=== PATIENT | female | born 1965 | race Caucasian/White ===

== ENCOUNTER 2018-02-22 16:54 | Emergency (ER) | payer BC ==
[2018-02-22] MEDS ORDERED: IPRATROPIUM/ALBUTEROL 3 ML VIAL NEB ONE (17:14)
[2018-02-22] MEDS ORDERED: methylPREDNISolone SODIUM SUC 125 MG/2 ML VIAL IV ONE (17:14)
[2018-02-22] MEDS ORDERED: cefTRIAXone SODIUM 1 GM in SODIUM CHL 0.9% 50ML MIN-BAG+ 50 ML IVPB ONE (17:14)
[2018-02-22] MEDS ORDERED: ACETAMINOPHEN 500 MG TAB PO ONE (17:16)
[2018-02-22] MEDS ORDERED: cefTRIAXone SODIUM 1 GM VIAL ONE (17:19)
[2018-02-22] MEDS ORDERED: SODIUM CHL 0.9% 50ML MIN-BAG+ 50 ML IVPB ONE (17:20)
[2018-02-22 17:34] VITALS: O2SAT 93
--- NOTE | 2018-02-22 18:09 | RAD ---
EXAM DESCRIPTION: Chest,2 Views CLINICAL HISTORY: 52 years Female shortness of breath COMPARISON: 04/15/2014 FINDINGS: The cardiomediastinal silhouette appears unremarkable. No consolidating infiltrates or pleural effusions. No pneumothorax. IMPRESSION: No acute abnormality is identified. 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
--- NOTE | 2018-02-22 18:50 | ED.PDOC ---
History of Present Illness - General Chief Complaint: Respiratory Problem Stated Complaint: difficulty breathing,cough,fever Time Seen by Provider: 02/22/18 17:14 Source: patient Exam Limitations: no limitations - History of Present Illness Initial Comments: patient comes in today with 3 day history of cough, fever, nasal congestion, and shortness of breath. Patient was seen via tele-doc a couple of days ago and started on Tamiflu and given a prednisone pack. However, patient states she continues to be short of breath today and so was told she should come in and be evaluated for possible pneumonia. Patient has some sputum production that clear and minimal. She continues to have some fever despite taking the Tamiflu. She states she does have breathing treatments at home with albuterol but they've only been minimally effective. The patient does have some wheezing and a positive history of smoking a half a pack a day since age 16. Patient otherwise is fairly healthy and has no ETOH or drug use. Timing/Duration: 1 week, getting worse Severity: moderate Activities at Onset: rest Possible Cause: no prior episodes Improving Factors: nothing Worsening Factors: movement Associated Symptoms: cough, fever, wheezing Respiratory Risk Factors: no cause identified Allergies/Adverse Reactions: Allergies Erythromycin Allergy (Verified 12/19/14 18:19) Home Medications: Ambulatory Orders Ciprofloxacin [Cipro] 500 mg PO BID #20 ml 12/21/14 metroNIDAZOLE [Flagyl] 500 mg PO TID #30 tab 12/21/14 Ipratropium [place] Nebs [Atrovent NEBS] 0.5 mg INH QID #1 pack 02/22/18 Review of Systems - Review of Systems Constitutional: States: chills, fever, malaise EENTM: States: nose congestion, throat pain Respiratory: States: cough, short of breath, wheezing Cardiology: Denies: no symptoms reported, chest pain, edema Gastrointestinal/Abdominal: States: no symptoms reported. 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 Hx Substance Use: No Hx Physical Abuse: No Hx Emotional Abuse: No Family Medical History - Family History Mother Family History: Unknown Living Status: Hx Family;Other: suscide Grandparents Living Status: Hx Family Stroke: Yes Physical Exam - Physical Exam General Appearance: Alert, No apparent distress Eyes, Ears, Nose, Throat Exam: PERRL/EOMI, normal ENT inspection, TMs normal, pharyngeal erythema Neck: non-tender, full range of motion, supple, normal inspection Respiratory: decreased breath sounds, wheezing Cardiovascular/Chest: normal peripheral pulses, regular rate, rhythm, no edema, no murmur Gastrointestinal/Abdominal: normal bowel sounds, non tender, soft Progress - Progress Progress: patient is doing much better after breathing treatment with Atrovent and albuterol. We've given her IV Rocephin as well as Solu-Medrol and she states she does feel better and her lung milner have cleared. We've given her precautions as her oxygen levels are currently running between 90-93% but we'll let her go home with close follow-up with her PCP on Saturday. She should continue the Tamiflu and the breathing treatments and we will give her prescription for Atrovent. 02/22/18 18:52 - Results/Orders Results/Orders: Laboratory Results WBC 7.0 K/mm3 (4.8-10.8) 02/22/18 17:41 RBC 4.60 M/mm3 (4.20-5.40) 02/22/18 17:41 Hgb 13.9 gm/dL (12.0-16.0) 02/22/18 17:41 Hct 42.2 % (36.0-47.0) 02/22/18 17:41 MCV 91.8 fl (81.0-99.0) 02/22/18 17:41 MCH 30.2 pg (27.0-31.0) 02/22/18 17:41 MCHC 32.9 g/dL (33.0-37.0) L 02/22/18 17:41 RDW 14.2 % (11.5-14.5) 02/22/18 17:41 Plt Count 250 K/mm3 (130-400) 02/22/18 17:41 MPV 9.0 fl (7.40-10.4) 02/22/18 17:41 Absolute Neuts (auto) 5.20 K/uL (1.8-6.8) 02/22/18 17:41 Absolute Lymphs (auto) 0.90 K/uL (1.0-3.4) L 02/22/18 17:41 Absolute Monos (auto) 0.80 K/uL (0.2-0.8) 02/22/18 17:41 Absolute Eos (auto) 0.00 K/uL (0.0-0.4) 02/22/18 17:41 Absolute Basos (auto) 0.00 K/uL (0.0-0.1) 02/22/18 17:41 Neutrophils % 75.1 % (42.0-78.0) 02/22/18 17:41 Lymphocytes % 13.4 % (20.0-50.0) L 02/22/18 17:41 Monocytes % 10.9 % (2.0-9.0) H 02/22/18 17:41 Eosinophils % 0.0 % (1.0-5.0) L 02/22/18 17:41 Basophils % 0.6 % (0.0-2.0) 02/22/18 17:41 Sodium 137 mmol/L (135-145) 02/22/18 17:41 Potassium 3.9 mmol/L (3.6-5.0) 02/22/18 17:41 Chloride 104 mmol/L (101-111) 02/22/18 17:41 Carbon Dioxide 24 mmol/L (21-31) 02/22/18 17:41 Anion Gap 12.9 (12-18) 02/22/18 17:41 BUN 17 mg/dL (7-18) 02/22/18 17:41 Creatinine 0.80 mg/dL (0.6-1.3) 02/22/18 17:41 BUN/Creatinine Ratio 21.3 (10-20) H 02/22/18 17:41 Random Glucose 114 mg/dL (70-105) H 02/22/18 17:41 Serum Osmolality 276.2 mOsm/L (275-295) 02/22/18 17:41 Calcium 9.1 mg/dL (8.4-10.2) 02/22/18 17:41 Total Bilirubin 0.2 mg/dL (0.2-1.0) 02/22/18 17:41 AST 36 IU/L (10-42) 02/22/18 17:41 ALT 27 IU/L (10-60) 02/22/18 17:41 Alkaline Phosphatase 74 IU/L (42-121) 02/22/18 17:41 Serum Total Protein 7.1 gm/dL (6.4-8.2) 02/22/18 17:41 Albumin 3.8 g/dl (3.2-5.5) 02/22/18 17:41 Globulin 3.3 gm/dL (2.3-3.5) 02/22/18 17:41 Albumin/Globulin Ratio 1.2 (1.1-1.9) 02/22/18 17:41 Patient Name: VERNA EDOUARD Gender: Female Date of : 1965 cell Referring Physician: SHIRA SLAUGHTER Organization: [facility] Accession Number: [id number] Requested Date: February 22, 2018 17:14 Report Status: Final Requested Procedure: 1 Procedure Description: Chest,2 Views Modality: CR Findings Reporting MD: Nolvia Arthur Fellow MD: Not available Dictation Time: Health And Safety Tech: Not available Squilgeer Date: EXAM DESCRIPTION: Chest,2 Views CLINICAL HISTORY: 52 years Female shortness of breath COMPARISON: 04/15/2014 FINDINGS: The cardiomediastinal silhouette appears unremarkable. No consolidating infiltrates or pleural effusions. No pneumothorax. IMPRESSION: No acute abnormality is identified. 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 Copy, Patient Portal Self Enrollment Diet: regular diet Referrals: SKYLAR MARAVILLA [Primary Care Provider] - 1-2 Weeks Prescriptions: Ipratropium [place] Nebs [Atrovent NEBS] 0.5 mg INH QID #1 pack Home Medications: Ambulatory Orders Ciprofloxacin [Cipro] 500 mg PO BID #20 ml 12/21/14 metroNIDAZOLE [Flagyl] 500 mg PO TID #30 tab 12/21/14 Ipratropium [place] Nebs [Atrovent NEBS] 0.5 mg INH QID #1 pack 02/22/18 Additional Instructions: return to ER for increasing shortness of breath, purulent sputum, or severe worsening of symptoms. Follow up on Saturday with PCP if not continuing to improve. May continue to use albuterol as well as prescribed Atrovent.
[2018-02-22 19:10] VITALS: BP 93/65; TEMP 99
== END 2018-02-22 19:10 | disposition home or self-care (01) ==
LOC: ER 16:54
DX: J11.1 Influenza due to unidentified influenza virus with other respiratory manifestations (principal); J45.901 Unspecified asthma with (acute) exacerbation; Z88.1 Allergy status to other antibiotic agents
CPT/HCPCS: 36415; 71046; 80053; 85025; 87502; 94640; J0696; J2930; J7050; J7620

== ENCOUNTER 2019-09-06 18:31 | Emergency (ER) | payer BC ==
[2019-09-06] MEDS ORDERED: MORPHINE SULFATE INJ 10 MG/ML VIAL IV ONE (18:57)
[2019-09-06] MEDS ORDERED: SODIUM CHLORIDE 0.9% 1000ML 1,000 ML IVS PRN (18:57)
[2019-09-06] MEDS ORDERED: ONDANSETRON INJ 4 MG/2 ML VIAL IV ONE (18:57)
--- NOTE | 2019-09-06 19:02 | ED.PDOC ---
History of Present Illness - General Chief Complaint: Abdominal Pain Stated Complaint: abd pain with n/v Time Seen by Provider: 09/06/19 18:51 - History of Present Illness Initial Comments: 54 yo pleasant women with 18 hours of left lower quadrent abdominal pain that radiates to her mid-epigastric. States she has a hx of diverticulitis, and thinks she has a flair up. no black or bloody bm. no sob. states she gets some pain with vomiting in her chest, but none currently. Last falre up was several months ago. Avi healthy only takes allergy medications Review of Systems - Review of Systems Constitutional: Denies: chills, fever, malaise EENTM: Denies: eye pain, blurred vision Respiratory: Denies: cough, orthopnea, short of breath, stridor Cardiology: Denies: chest pain, edema, palpitations, syncope Gastrointestinal/Abdominal: States: abdominal pain, nausea, vomiting. Denies: constipation, diarrhea Genitourinary: States: other - denies vaginal discharge or vaginal bleeding. Denies: discharge, dysuria, frequency Musculoskeletal: Denies: back pain, joint pain, muscle pain Skin: Denies: change in color, dryness Neurological: Denies: headache, numbness, tingling, weakness Endocrine: Denies: intolerance to cold, intolerance to heat, increased thirst, increased urine, unexplained weight gain, unexplained weight loss Hematologic/Lymphatic: Denies: anemia, blood clots, easy bleeding, easy bruising All other Systems: Reviewed and Negative Past Medical History (General) - Patient Medical History Hx Seizures: No Hx Stroke: No Hx Asthma: Yes Hx of COPD: No Hx Cardiac Disorders: No Hx Congestive Heart Failure: No Hx Pacemaker: No Hx Hypertension: No Hx Diabetes: No Hx MRSA: No Surgical History: cholecystectomy - Vaccination History Hx Tetanus, Diphtheria Vaccination: No Hx Influenza Vaccination: No Hx Pneumococcal Vaccination: No Immunizations Up to Date: No - Social History Hx Tobacco Use: Yes Hx Alcohol Use: Yes - occ Hx Substance Use: No Hx Substance Use Treatment: No Hx Depression: No Hx Physical Abuse: No Hx Emotional Abuse: No - Female History Patient is a Female of Child Bearing Age (10 -59 yrs old): No Family Medical History - Family History Mother Family History: Unknown Living Status: Hx Family;Other: suscide Grandparents Living Status: Hx Family Stroke: Yes Physical Exam - Physical Exam General Appearance: Alert, Comfortable, No apparent distress Eyes, Ears, Nose, Throat Exam: PERRL/EOMI, normal ENT inspection, pharynx normal Neck: non-tender, full range of motion, supple, normal inspection Respiratory: chest non-tender, lungs clear, normal breath sounds, no respiratory distress, no accessory muscle use Cardiovascular/Chest: normal peripheral pulses, regular rate, rhythm, no edema, no gallop, no JVD Peripheral Pulses: 2+ Gastrointestinal/Abdominal: normal bowel sounds - mild tenderness, no rebound or gaurding. 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 CT abdomen pelvis with contrast. EKG shows NSR without any evidence of ischemia. will get cxr. CBC, CMP, troponin. CXR unremarkable. CBC with leukocytosis, otherwise unremarkable. Mild decrease in K, otherwise CMP unremarkable. Lipase wnl. UA no evidence of infection. she was PO challenged. Tolerated Flaygl and cipro and 20 meq potassium The data reviewed when caring for this patient included: nurse notes etc. The history and assessments from nurses notes were reviewed and considered, and the patient's home medication list was also reviewed and considered. My assessment and the results of testing completed here in the ED were discussed with the patient/family. All questions were answered, and they express understanding of my assessment and the plan. They have been instructed to return if their symptoms worsen, and have been asked to follow up with their primary care physician to recheck today's presenting complaint. Billing code [id number] 09/06/19 19:04 Departure - Departure Clinical Impression: Diverticulitis large intestine Qualifiers: Diverticulitis bleeding: without bleeding Diverticulitis complication: without perforation or abscess Qualified Code(s): K57.32 - Diverticulitis of large intestine without perforation or abscess without bleeding Time of Disposition: 20:45 Disposition: Discharge to Home or Self Care Condition: Good Departure Forms: ED Discharge - Pt. Copy, Patient Portal Self Enrollment Instructions: DI for Abdominal Pain-Adult, Diverticulitis (DC) Prescriptions: Ciprofloxacin [Cipro] 500 mg PO BID 14 Days #28 tab Metronidazole 500 mg PO Q8H 14 Days #42 tab Ondansetron HCl [Zofran] 4 mg PO TID PRN #15 tab PRN Reason: Vomiting Home Medications: Ambulatory Orders Ciprofloxacin [Cipro] 500 mg PO BID 14 Days #28 tab 09/06/19 Metronidazole 500 mg PO Q8H 14 Days #42 tab 09/06/19 Ondansetron HCl [Zofran] 4 mg PO TID PRN #15 tab 09/06/19
--- NOTE | 2019-09-06 20:15 | CT ---
EXAM: CT Abdomen and Pelvis With Intravenous Contrast CLINICAL HISTORY: The patient is 54 years old and is Female; abdominal pain TECHNIQUE: Axial computed tomography images of the abdomen and pelvis with intravenous contrast. Sagittal and coronal reformatted images were created and reviewed. This CT exam was performed using one or more of the following dose reduction techniques: automated exposure control, adjustment of the mA and/or kV according to patient size, and/or use of iterative reconstruction technique. COMPARISON: December 19, 2014 FINDINGS: Lung bases: Unremarkable. No mass. No consolidation. ABDOMEN: Liver: Unremarkable. No mass. Gallbladder and bile ducts: Gallbladder surgically absent No ductal dilation. Pancreas: Unremarkable. No mass. No ductal dilation. Spleen: Unremarkable. No splenomegaly. Adrenals: Unremarkable. No mass. Kidneys and ureters: Unremarkable. No solid mass. No hydronephrosis. Stomach and bowel: Colon diverticulosis. Focal thickening and pericolic stranding of sigmoid colon consistent with acute diverticulitis No obstruction. PELVIS: Appendix: No findings to suggest acute appendicitis. Bladder: Unremarkable. No mass. Reproductive: Unremarkable as visualized. ABDOMEN and PELVIS: Intraperitoneal space: Unremarkable. No free air. No significant fluid collection. Bones/joints: Mild spine degenerative changes No acute fracture. No dislocation. Soft tissues: Unremarkable. Vasculature: Unremarkable. No abdominal aortic aneurysm. Lymph nodes: Unremarkable. No enlarged lymph nodes. IMPRESSION: Findings consistent with sigmoid colon diverticulitis. No abscess formation. No betina perforation. Electronically signed by: Cesar Breaux MD 09/06/2019 8:14 PM CDT
--- NOTE | 2019-09-06 20:17 | RAD ---
EXAM DESCRIPTION: Chest,2 Views CLINICAL HISTORY:54 years Female, chest pain Comparison: Chest radiograph dated 02/22/2018 FINDINGS: No focal lung consolidation. No pleural effusion. No pneumothorax. Cardiomediastinal silhouette is within normal limits. No acute osseous abnormality. IMPRESSION: No acute cardiopulmonary disease. Electronically signed by: Kartik Newman DO 09/06/2019 8:15 PM CDT
[2019-09-06] MEDS ORDERED: metroNIDAZOLE 500 MG TAB PO ONE (20:26)
[2019-09-06] MEDS ORDERED: POTASSIUM CHLORIDE 20 MEQ TAB PO ONE (20:27)
[2019-09-06] MEDS ORDERED: CIPROFLOXACIN 500 MG TAB PO ONE (20:27)
[2019-09-06 21:06] VITALS: BP 104/58; TEMP 97.4; O2SAT 97
== END 2019-09-06 21:06 | disposition home or self-care (01) ==
LOC: ER 18:31
DX: K57.32 Diverticulitis of large intestine without perforation or abscess without bleeding (principal); J45.909 Unspecified asthma, uncomplicated; Z90.49 Acquired absence of other specified parts of digestive tract; Z87.891 Personal history of nicotine dependence
CPT/HCPCS: 71046; 74177; 80053; 81001; 83690; 84484; 85025; J2270; J2405; J7030